=== PATIENT | female | born 1995 ===

== ENCOUNTER 2017-01-09 15:43 | Emergency (ER) | payer OTHER ==
[2017-01-09 16:26] VITALS: BP 95/63
--- NOTE | 2017-01-09 17:17 | UC ---
Knee Pain HPI - HPI Summary HPI Summary: Pt presents with c/o left knee pain that has been worsening over the last week. Pt has history o fACL repair and meniscus tear repair 2 years ago. 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 Pt repots that she feels a "slip and click" when walking up and down stairs. C/O mild swelling and mild pain that worsens with physical activity. - History of Current Complaint Chief Complaint: UCLowerExtremity Stated Complaint: LEFT KNEE Time Seen by Provider: 01/09/17 16:31 Hx Obtained From: Patient Hx Last Menstrual Period: 12/21/16 ?: No Onset/Duration: Gradual Onset, Lasting Weeks Severity Initially: Mild Severity Currently: Mild Character: Dull, Aching Aggravating Factor(s): Weight Bearing, Stairs Alleviating Factor(s): Rest, Position Associated Signs And Symptoms: Positive: Swelling - mild Able to Bear Weight: Yes - Allergies/Home Medications Allergies/Adverse Reactions: Allergies Allergy/AdvReac Type Severity Reaction Status Date / Time No Known Allergies Allergy Verified 01/09/17 16:14 Home Medications: Home Medications NK [No Home Medications Reported] 01/09/17 [History Confirmed 01/09/17] PMH/Surg Hx/FS Hx/Imm Hx Previously Healthy: Yes Respiratory History Of: Reports: Asthma - exerise induced - Surgical History Surgical History: Yes Surgery Procedure, Year, and Place: 2013 LEFT knee arthroscopic assisted ACL reconstruction w/ [id number] autograft; Arthroscopic partial medial/ lateral meniscectomies; Microfracture procdure medial femoral condyle - Family History Known Family History: Positive: Other - Positive [facility] for myalgia - Social History Occupation: Student - at [employer] Alcohol Use: None Substance Use Type: None Smoking Status (MU): Never Smoked Tobacco - Immunization History Most Recent Influenza Vaccination: None Most Recent Tetanus Shot: UTD Most Recent Pneumonia Vaccination: N/A Review of Systems Constitutional: Negative Skin: Negative Eyes: Negative ENT: Negative Respiratory: Negative Cardiovascular: Negative Gastrointestinal: Negative Genitourinary: Negative Motor: Other - feeling of "slipping and clicking with stairs and ROM" Neurovascular: Negative Musculoskeletal: Arthralgia, Myalgia Neurological: Negative Psychological: Negative All Other Systems Reviewed And Are Negative: Yes Physical Exam Triage Information Reviewed: Yes Appearance: Well-Appearing Vital Signs: Initial Vital Signs Temp 98.2 F 01/09/17 16:15 Pulse 56 01/09/17 16:15 Resp 18 01/09/17 16:15 BP 95/63 01/09/17 16:15 Pulse Ox 100 01/09/17 16:15 Vital Signs Reviewed: Yes ENT Exam: Normal Neck exam: Normal Respiratory Exam: Normal Cardiovascular Exam: Normal Musculoskeletal Exam: Other Musculoskeletal: Positive: Other: - mild laxity with draw test, arthritic clicking felt with ROM Neurological Exam: Normal Psychological Exam: Normal Skin Exam: Normal Knee Pain Course/Dx - Course Course Of Treatment: I discussed with the pt the need to follow up with their PCP or Orthopedic provider that provider the surgical procedure two years ago. I also provided a referral to a [facility] orthopedic provider as another option. Pt verbalized understanding and agreed to plan of care. - Differential Dx/Diagnosis Differential Diagnosis/HQI/PQRI: Sprain, Strain, Other Provider Diagnoses: left knee pain Discharge - Discharge Plan Condition: Stable Disposition: HOME Patient Education Materials: Knee Pain (ED), Knee Exercises (GEN) Referrals: [facility] [Outside] [facility] [Outside] Adwoa Morin MD [Medical Doctor] - If Needed (Please follow up with your PCP or return to the clinic as needed. We have provided you with a referral to an Orthopedic provider. Please follow up as needed. )
== END 2017-01-09 17:00 | disposition home or self-care (01) ==
LOC: UCCORT 15:43
DX: M25.562 Pain in left knee (principal)
CPT/HCPCS: 99201; G0463